=== PATIENT | female | born 1995 | race Hispanic/Latino ===

== ENCOUNTER 2017-02-05 10:41 | Observation (INO) | payer BC ==
[2017-02-05 10:44] VITALS: BMI 22.8
[2017-02-05 10:46] VITALS: BP 107/64; PULSE 76; RESP 18; TEMP 98; O2SAT 100
--- NOTE | 2017-02-05 11:14 | ED PDOC ---
HPI: CCC, URI, Sore Throat Time Seen by Provider: 02/05/17 10:48 Chief Complaint (Nursing): ENT Problem Chief Complaint (Provider): sore throat History Per: Patient Additional Complaint(s): 21-year-old female presents to emergency Department with pain to right side of her throat that started yesterday. Patient was seen at [facility] and was told to come to ED to rule out a possible abscess. Patient denies any known fever or chills. She was able to tolerate fluids and yogurt this morning. She denies any nausea or vomiting. Her pain is an 8 out of 10. Past Medical History Reviewed: Historical Data, Nursing Documentation, Vital Signs Vital Signs: Last Vital Signs Temp 98.0 F 02/05/17 10:45 Pulse 76 02/05/17 10:45 Resp 18 02/05/17 10:45 BP 107/64 02/05/17 10:45 Pulse Ox 100 02/05/17 17:02 - Medical History Other PMH: ADHD - Surgical History Surgical History: No Surg Hx - Family History Family History: States: No Known Family Hx - Living Arrangements Living Arrangements: With Family - Social History Current smoker - smoking cessation education provided: No Alcohol: None Drugs: Denies - Home Medications Home Medications: Ambulatory Orders Medication Instructions Recorded Amphetamine Salt Combination 60 mg PO DAILY 02/05/17 [Adderall] - Allergies Allergies/Adverse Reactions: Allergies Allergy/AdvReac Type Severity Reaction Status Date / Time No Known Allergies Allergy Verified 02/05/17 10:52 Review of Systems ROS Statement: Except As Marked, All Systems Reviewed And Found Negative Constitutional: Negative for: Fever, Chills ENT: Positive for: Throat Pain (right side of throat), Throat Swelling (right side of throat) Respiratory: Negative for: Cough Gastrointestinal: Negative for: Vomiting Neurological: Negative for: Headache, Dizziness Physical Exam - Reviewed Nursing Documentation Reviewed: Yes Vital Signs Reviewed: Yes - Physical Exam Appears: Positive for: Well, Non-toxic, No Acute Distress Skin: Negative for: Rash Eye Exam: Positive for: Normal appearance, EOMI, PERRL ENT: Positive for: TM Is/Are (normal bilaterally), Pharyngeal Erythema, Tonsillar Exudate (right tonsil), Tonsillar Swelling (right tonsil). Negative for: Nasal Congestion Cardiovascular/Chest: Positive for: Regular Rate, Rhythm Respiratory: Positive for: Normal Breath Sounds. Negative for: Respiratory Distress Gastrointestinal/Abdominal: Positive for: Soft. Negative for: Tenderness Extremity: Negative for: Pedal Edema Lymphatic: Positive for: Adenopathy (right anterior cervical LAD) Neurologic/Psych: Positive for: Alert, Oriented - Laboratory Results Result Diagrams: 02/05/17 12:28 02/05/17 12:28 Urine POC: Negative - ECG O2 Sat by Pulse Oximetry: 100 Pulse Ox Interpretation: Normal - Other Rad CT soft tissue neck with IV contrast X-Ray: Read By Radiologist X-Ray Interpretation: see below Medical Decision Making Medical Decision Makin21 year old with right sided sore throat Plan: Blood cultures CBC CMP Rapid strep and throat culture IVF IV decadron and torafol CT soft tissue neck with IV contrast CT: IMPRESSION: 10 x 10 millimeter right para tonsillar submucosal abscess with minimal internal radiolucency and narrowing of the airway. Case was d/w [facility], Dr. Carlisle. He states he will come to ED to see patient. ED OBSERVATION Discharge: Yes Date of observation admission: 02/05/17 Time of observation admission: 15:24 - Observation admission statement Patient is being placed in observation because:: Peritonsilar abscess, awaiting ENT consult - Goals of Observation Goals of observation are:: Monitor vital signs and airway in ED pending ENT consult for I&D. - Progress Note Progress Note: 02/05/17 15:25 Patient still has pain after toradol was given, 50 mg PO tramadol ordered. IV zosyn infusing. Dr. Carlisle on way to ED to see patient. Vital signs are stable , no resp distress noted. 02/05/17 17:01 Dr. Carlisle arrived at bedside, I&D completed. Procedure was tolerated well by patient. Patient will be discharged with rx augmentin, motrin and tramadol. Patient was instructed to drink plenty of fluids and rest. She was instructed to follow up with Dr. Carlisle in office in 1 week. Disposition - Clinical Impression Clinical Impression: Peritonsillar abscess, Strep throat - Patient ED Disposition Is Patient to be Admitted: No Counseled Patient/Family Regarding: Studies Performed, Diagnosis, Need For Followup, Rx Given - Disposition Disposition: Routine/Home Disposition Time: 17:19 Condition: IMPROVED - POA Present On Arrival: None Results - Lab Results Lab Results: 02/05/17 02/05/17 02/05/17 12:28 12:28 12:28 WBC 14.7 H RBC 4.62 Hgb 14.6 Hct 44.2 MCV 95.6 MCH 31.7 H MCHC 33.2 RDW 14.0 Plt Count 222 MPV 8.9 Neut % (Auto) 81.5 H Lymph % (Auto) 9.6 L Harmon % (Auto) 7.9 Eos % (Auto) 0.8 Baso % (Auto) 0.2 Neut # 12.0 H Lymph # 1.4 Harmon # 1.2 H Eos # 0.1 Baso # 0.0 Neutrophils % (Manual) 81 H Band Neutrophils % 5 H Lymphocytes % (Manual) 8 L Monocytes % (Manual) 5 Eosinophils % (Manual) 1 Hypersegmented Polys Present Toxic Granulation Present Platelet Estimate Normal Macrocytosis (manual) Slight Sodium 141 Potassium 4.2 Chloride 104 Carbon Dioxide 26 Anion Gap 15 BUN 12 Creatinine 0.7 Est GFR ( Amer) > 60 Est GFR (Non-Af Amer) > 60 Random Glucose 66 Calcium 9.8 Total Bilirubin 0.5 AST 28 ALT 36 Alkaline Phosphatase 69 Total Protein 7.6 Albumin 4.6 Globulin 3.0 Albumin/Globulin Ratio 1.6 Grp A Beta Strep Ag Positive H
[2017-02-05] MEDS ORDERED: Dexamethasone 4 mg/1 ml IV STA (11:33)
[2017-02-05] MEDS ORDERED: Sodium Chloride 0.9% 1,000 ML IV STA ×2 (11:33→13:26)
[2017-02-05 12:53] LABS: BASO % 0.2 % (0.0-2.0); EOS # 0.1 K/uL (0.0-0.7); EOS % 0.8 % (0.0-4.0); HEMATOCRIT 44.2 % (34.0-47.0); LYMPH # 1.4 K/uL (1.0-4.3); LYMPH % 9.6 % (20.0-40.0); MEAN CELL VOLUME 95.6 fl (81.0-99.0); MEAN CORPUSCULAR HEMOGLOBIN 31.7 pg (27.0-31.0); MEAN CORPUSCULAR HGB CONC 33.2 g/dL (33.0-37.0); MEAN PLATELET VOLUME 8.9 fl (7.2-11.7); MONO # 1.2 K/uL (0.0-0.8); MONO % 7.9 % (0.0-10.0); NEUT % 81.5 % (50.0-75.0); PLATELET COUNT 222 K/uL (130-400); WHITE BLOOD COUNT 14.7 K/uL (4.8-10.8)
[2017-02-05 13:08] LABS: ALB/GLOB RATIO 1.6 (1.0-2.1); ALKALINE PHOSPHATASE 69 U/L (38-126); ALT/SGPT 36 U/L (9-52); AST/SGOT 28 U/L (14-36); BILIRUBIN,TOTAL 0.5 mg/dl (0.2-1.3); BLOOD UREA NITROGEN 12 mg/dl (7-17); CALCIUM 9.8 mg/dL (8.4-10.2); CARBON DIOXIDE 26 mmol/L (22-30); CHLORIDE 104 mmol/L (98-107); GFR AFRICAN-AMERICAN > 60; GLUCOSE,RANDOM 66 mg/dL (65-105); POTASSIUM 4.2 MMOL/L (3.6-5.0); SODIUM 141 mmol/l (132-148); TOTAL PROTEIN 7.6 G/DL (6.3-8.2)
[2017-02-05] MEDS ORDERED: Sodium Chloride 0.9% 50 ML IV ONE (13:30)
[2017-02-05] MEDS ORDERED: Iohexol 300 100 ML IJ ONE (13:30)
[2017-02-05 14:32] LABS: EOSINOPHIL 1 % (0-7); NEUTROPHIL 81 % (42-75); TOTAL CELLS COUNTED 100
--- NOTE | 2017-02-05 14:52 | CT ---
PROCEDURE: CT NECK WITH CONTRAST HISTORY: right tonsillar swelling, possible abscess COMPARISON: None TECHNIQUE: CT of the neck with intravenous contrast. Coronal and sagittal reformats generated. Intravenous contrast dose: Radiation dose: DLP mGy-cm This CT exam was performed using one or more of the following dose reduction techniques: Automated exposure control, adjustment of the mA and/or kV according to patient size, and/or use of iterative reconstruction technique. FINDINGS: NASOPHARYNX: Unremarkable. SUPRAHYOID NECK: There is a 10 x 10 millimeter right para tonsillar submucosal abscess with minimal internal radiolucency and narrowing of the airway. INFRAHYOID NECK: Unremarkable larynx, hypopharynx, and supraglottic space. Vocal cords intact. MASS: None. GLANDS: Parotid and submandibular glands unremarkable. Normal size thyroid gland, without nodule. LYMPH NODES: Normal. No lymphadenopathy. CERVICAL SPINE: No fracture or focal lesion. VASCULAR STRUCTURES: Unremarkable. OTHER FINDINGS: None. IMPRESSION: 10 x 10 millimeter right para tonsillar submucosal abscess with minimal internal radiolucency and narrowing of the airway.
[2017-02-05] MEDS ORDERED: Piperacillin/Tazobact 3.375 GM in Sodium Chloride 0.9% 100 ML IVPB STA (14:58)
[2017-02-05] MEDS ORDERED: Piperacillin/Tazobact 3.375 gm Inj IVPB ONE (15:03)
[2017-02-05] MEDS ORDERED: Lidocaine 2% w Epi 1:100,000 Inj IJ ONE (15:29)
--- NOTE | 2017-02-05 20:50 | OP ---
PROCEDURE DATE: 02/05/2017 PREOPERATIVE DIAGNOSIS: Right peritonsillar abscess. POSTOPERATIVE DIAGNOSIS: Right peritonsillar abscess. PROCEDURE: Incision and drainage of peritonsillar abscess. SIGNIFICANT FINDINGS: Right peritonsillar abscess. DESCRIPTION OF PROCEDURE: The patient was placed in a seated position. The right peritonsillar area was injected with lidocaine with epinephrine. An incision was made in the right peritonsillar area using a #11 blade. Clamp dissection was done. Pus was noted coming out. Bleeding was controlled wi th time. The patient tolerated the procedure well. Riley Calrisle MD cc: [id number] TT: 02/05/2017 20:49:11 kirk
== END 2017-02-05 17:36 | disposition home or self-care (01) ==
LOC: H.ER 10:41 → H.EROBSV 15:22
PROVIDERS: ADMIT Emergency Medicine; ATTEND Emergency Medicine
DX: J36 Peritonsillar abscess (principal); J02.0 Streptococcal pharyngitis; F90.9 Attention-deficit hyperactivity disorder, unspecified type
CPT/HCPCS: 42700; 70491; 80053; 81025; 85025; 87040; 87430; 99283; G0378; J1100; J1885; J2543; J7040; Q9967